=== PATIENT | female | born 1950 | race Caucasian/White ===

== ENCOUNTER 2020-06-10 17:59 | Emergency (ER) | payer MEDICARE, OTHER ==
[2020-06-10 19:30] LABS: BASOPHIL 0.4 % (0-2); EOSINOPHIL 1.2 % (0-7); HCT 38.2 % (37.0-47.0); HGB 13.2 g/dl (12.5-16.0); LYMPHOCYTE 19.3 % (15-48); MCH 32.9 pg (25.0-31.0); MCHC 34.6 g/dL (32.0-36.0); MCV 95.3 fL (78.0-100.0); MPV 9.7 fL (6.0-9.5); NEUTROPHIL 71.7 % (41-80); NRBC 0; PLT 316 K/uL (150-400); RBC 4.01 M/uL (4.20-5.40); RDW 12.1 % (11.5-14.0); WBC 7.3 K/uL (4.0-10.5)
[2020-06-10 19:34] LABS: INR 0.86 (0.9-1.2); PROTHROMBIN TIME 11.1 SECONDS (11.4-13.6); PTT 23.1 SECONDS (22.2-34.7)
[2020-06-10 19:40] LABS: ALBUMIN 3.5 g/dL (3.4-5.0); BILIRUBIN - TOTAL 0.3 mg/dL (0.2-1.0); BUN/CREAT RATIO (CALC) 33.3 RATIO; CREATININE 0.45 mg/dL (0.51-0.95); GLOBULIN (CALCULATION) 3.4 g/dL; TOTAL PROTEIN 6.9 g/dL (6.4-8.2)
== END 2020-06-10 19:45 | disposition other institution (70) ==
LOC: FER 17:59
PROVIDERS: Emergency Medicine
DX: I61.4 Nontraumatic intracerebral hemorrhage in cerebellum (principal)
CPT/HCPCS: 36415; 70450; 80053; 85025; 85610; 85730; 93005; J2270; J2405; J3490